=== PATIENT | female | born 1945 | race Caucasian/White ===

== ENCOUNTER 2021-08-19 20:55 | Inpatient (IN) ==
[2021-08-19] MEDS ORDERED: Perflutren Lipid Microsphere 1.3 ML in 0.9 % Sodium Chloride 8.7 ML IVP PRN (23:13)
[2021-08-19] MEDS ORDERED: D5% in Water 1,000 ML IVC PRN (23:18)
[2021-08-19] MEDS ORDERED: Dextrose 4 GM Chewable Tablets PO PRN ×2 (23:18)
[2021-08-19] MEDS ORDERED: *HR* Dextrose 50 % in Water (Syg) 50 ML SYRINGE IVP PRN (23:18)
[2021-08-19] MEDS ORDERED: Insulin DETEMIR 100 UNIT/ML X5UNITS SUBQ SCH (23:30)
[2021-08-20] MEDS: Insulin LISPRO 300 UNITS/3 ML VIAL SUBQ SCH ×5 (00:27→23:59)
[2021-08-20] MEDS ORDERED: Naloxone 0.4 MG/ML INJ IVP PRN (02:35)
[2021-08-20] MEDS ORDERED: Melatonin 3 MG TABLET PO PRN (02:35)
[2021-08-20 07:10] LABS: Hematocrit 47.3 % (35.3-44.9); Hemoglobin 15.7 g/dL (11.5-15.4); Mean Corpuscular HGB Conc 33.2 g/dL (31.6-35.5); Mean Corpuscular Hemoglobin 28.5 pg (28.0-33.3); Platelet Count 321 K/mcL (140-400); Red Cell Distribution Width 13.4 % (11.5-14.5); White Blood Count 11.4 K/mcL (4.3-11.1)
[2021-08-20] MEDS: Ondansetron 4 MG/2 ML VIAL IVP PRN ×2 (07:15→14:12)
[2021-08-20 07:34] LABS: BUN/Creatinine Ratio 21 (6-26); Blood Urea Nitrogen 21 mg/dL (8-23); Calcium 9.7 mg/dL (8.6-10.3); Carbon Dioxide 29 mEq/L (23-29); Chloride 97 mEq/L (98-107); Chol/HDL Ratio 3.5 (0-4.9); Cholesterol 152 mg/dL (< 200); Glucose 264 mg/dL (70-105); HDL Cholesterol 43 mg/dL (40-59); LDL Cholesterol,Calculated 82 mg/dL (< 100); Osmolality,Calculated 294 (280-300); Potassium 3.8 mEq/L (3.5-5.1); Sodium 136 mEq/L (136-145); Triglycerides 137 mg/dL (< 150); eGFR For African Americans > 60 (> 60); eGFR For Non-African Americans 53 (> 60)
[2021-08-20 09:24] LABS: Estimated Average Glucose 283 mg/dl; Hemoglobin A1C 11.5 %
[2021-08-20] MEDS: clonazePAM 0.5 MG TABLET PO PRN ×2 (09:39→14:12)
[2021-08-20] MEDS ORDERED: *HR* Promethazine 25 MG/ML VIAL IM ONE (09:53)
[2021-08-20] MEDS ORDERED: Insulin DETEMIR 100 UNIT/ML X5UNITS SUBQ SCH (21:00)
[2021-08-21] MEDS: Insulin LISPRO 300 UNITS/3 ML VIAL SUBQ SCH ×2 (06:12→11:35)
[2021-08-21] MEDS: clonazePAM 0.5 MG TABLET PO PRN (08:47)
[2021-08-21 11:54] VITALS: BP 143/77; PULSE 86; TEMP 98.3; O2SAT 96
== END 2021-08-21 14:11 | disposition home or self-care (01) | DRG 69 ==
LOC: 3BNU
PROVIDERS: ADMIT Student in an Organized Health Care Education/Training Program; ATTEND Student in an Organized Health Care Education/Training Program